=== PATIENT | female | born 1960 ===

== ENCOUNTER 2019-02-09 08:55 | Day surgery (SDC) | payer MEDICARE, MEDICAID ==
[2019-02-07 13:28] VITALS: BMI 32.5
[2019-02-09] MEDS ORDERED: Propofol 10 mg/ml Inj (20 ML) ONE (11:10)
[2019-02-09] MEDS ORDERED: Midazolam 2 MG/2 ML VIAL ONE (11:10)
[2019-02-09] MEDS ORDERED: cefTRIAXone 1 gm 1 GM/100 ML BAG IVPB ONE (11:14)
[2019-02-09] MEDS ORDERED: Lidocaine 2% Jelly (Uro-Jet) ONE (11:15)
[2019-02-09] MEDS ORDERED: Iohexol 240 (50 ml) ONE (11:15)
[2019-02-09] MEDS: HYDROmorphone 0.5 mg/0.5 ml ISec IVP PRN ×2 (13:04→13:13)
--- NOTE | 2019-02-09 14:29 | RAD ---
Date of service: 02/09/2019 PROCEDURE: Intraoperative Fluoroscopy. HISTORY: RT. URETER CALCULI FINDINGS: Fluoroscopic assistance was provided for right ureteroscopy and stent placement. Please refer to the operative report from [facility]. Total fluoroscopic time (continuous mode) utilized during the procedure 14.0 seconds. Dose report: DLP [id number] (mGy/m2)
[2019-02-09 14:38] VITALS: BP 125/80; PULSE 81; RESP 15; TEMP 97.7; O2SAT 97
--- NOTE | 2019-02-10 00:43 | OP ---
PROCEDURE DATE: 02/09/2019 PREOPERATIVE DIAGNOSIS: Right ureteral calculus, post lithotripsy. POSTOPERATIVE DIAGNOSIS: Right ureteral calculus. PROCEDURES PERFORMED: Cystoscopy, removal of double-J stent, ureteroscopy, and holmium laser lithotripsy of obstructing ureteral calculus. SURGEON: Madi Monet MD DESCRIPTION OF PROCEDURE: The patient was placed on the operating room table in the dorsal lithotomy position. The area of the groin was draped and prepped in a sterile manner. I initially did a cystoscopy to remove the double-J stent. As I pulled it down, I then passed a safety wire through the existing double-J stent and left it attached to the side. At that point, then I went under direct vision, ureteroscopy and I saw an intact lower ureteral calculus, which was completely obstructing. I tried to engage it in a basket. It was too large. At that point, I decided to deploy holmium laser and at this time, I did a holmium laser of the stone, broke it into multiple fragments and then went back and forth multiple times until all the fragments were visually removed. Once this was done, I then left a 6-Maced[place] multi-length double-J stent fluoroscopically into good position. Once this was done, then the patient was taken from the operating room in good condition. Madi Monet MD
== END 2019-02-09 14:25 | disposition home or self-care (01) ==
LOC: C.SDS 08:55
PROVIDERS: ATTEND Urology
DX: N20.1 Calculus of ureter (principal); N23 Unspecified renal colic
CPT/HCPCS: 52356; 82365; 82948; 88300; C1725; C1769; J0696; J1170; J2405; J2765